=== PATIENT | female | born 1990 | race Caucasian/White ===

== ENCOUNTER 2020-07-09 08:53 | Outpatient (CLI) | payer BC, OTHER ==
[2020-07-09 16:37] LABS: SARS-CoV-2 MS2 Positive; SARS-CoV-2 N Gene Negative; SARS-CoV-2 S Gene Negative; SARS-CoV-2 by NAA Not Detected (NotDetected); SARS-CoV-2 orf1ab Negative
== END 2020-07-09 08:54 | disposition home or self-care (01) ==
LOC: LABBT 08:53
PROVIDERS: ATTEND Obstetrics & Gynecology
DX: Z20.828 Contact with and (suspected) exposure to other viral communicable diseases (principal)
CPT/HCPCS: 87635; U0003

== ENCOUNTER 2020-07-11 00:50 | Inpatient (IN) | payer BC, OTHER ==
[2020-07-11] MEDS ORDERED: Promethazine HCl 25 MG/ML VIAL IM PRN (01:38)
[2020-07-11] MEDS ORDERED: hydrALAZINE 20 MG/ML VIAL SLOW IVP PRN ×2 (01:38→17:36)
[2020-07-11] MEDS ORDERED: Lidocaine 1% (PF) 30 ML VIAL SC PRN (01:38)
[2020-07-11] MEDS ORDERED: Butorphanol Tartrate 1 MG/ML VIAL SLOW IVP PRN (01:38)
[2020-07-11] MEDS ORDERED: Ondansetron PF 4 MG/2 ML Vial IVP PRN ×2 (01:38→17:36)
[2020-07-11] MEDS ORDERED: Acetaminophen 500 MG TAB PO PRN (01:38)
[2020-07-11] MEDS ORDERED: Ibuprofen 800 MG TAB PO PRN (01:38)
[2020-07-11] MEDS ORDERED: HYDROcodone/Acetaminophen 5/325 mg Tablet PO PRN ×4 (01:38→17:36)
[2020-07-11] MEDS ORDERED: Lactated Ringer's 1,000 ML IV SCH (01:45)
[2020-07-11] MEDS ORDERED: NS w/ Oxytocin 10 units 500 ML IV SCH (01:45)
[2020-07-11 01:58] VITALS: BMI 25.1
[2020-07-11 03:19] LABS: Hemoglobin 12.3 g/dL (12.0-16.0); Mean Corpuscular HGB CONC 34.7 g/dL (32.0-36.0); Mean Corpuscular Hemoglobin 31.6 pg (27.0-31.0); Platelet Count 171 thou/uL (130-400); RBC Distribution Width 12.1 % (11.5-14.5); Red Blood Cell (RBC) Count 3.89 mill/uL (4.20-5.40); White Blood Cell (WBC) Count 10.5 thou/uL (4.8-10.8)
[2020-07-11 04:01] LABS: HBSAg Index 0.14 S/CO (0-0.99); Hep B Surf Ag Non-Reactive S/CO (NonReactive)
[2020-07-11 05:12] LABS: Syphilis Antibody Nonreactive (Nonreactive); Syphilis Antibody Index 0.03 S/CO (<1.00 Non-Reactive)
[2020-07-11] MEDS: Lactated Ringer's 1,000 ML IV SCH ×3 (07:40→11:27)
[2020-07-11] MEDS ORDERED: Fentanyl 4 mcg/Bup 0.1% Cadd 100 ML ONE (07:40)
--- NOTE | 2020-07-11 08:16 | PDOC.LDHP ---
Labor and Delivery H&P Chief complaint: loss of fluid HPI: Pt is 29yo @ term w PROM last night at 2230. Current gestational age (weeks): 39 Due date: 07/13/20 Dating criteria: last menstrual period, first trimester ultrasound Grav: 3 Para: 2 Current complications: none Abnormal US findings: No Current medications: pre-tani vitamins Previous surgical history: none (partial colectomy) Allergies/Adverse Reactions: Allergies Allergy/AdvReac Type Severity Reaction Status Date / Time No Known Drug Allergies Allergy Verified 02/23/19 12:49 Social history: none - Physical Exam Vital signs reviewed and normal: yes General: NAD Heart: RRR Lungs: CTAB Abdomen: gravid Extremeties: no edema FHT: category 1 - Vaginal Exam cm dilated: 3 Effacement: 75% Station: 0 - OB Labs Blood type: B RH: positive Antibody Screen: negative HIV: negative RPR: negative HEPSAg: negative 1 hour GCT: negative GBS: negative Rubella: immune - Assessment L&D Assessment: term rupture in membranes - Plan Plan: admit to L&D, labor augmentation if indicated, informed consent obtained, anesthesia consult for pain management
--- NOTE | 2020-07-11 12:59 | PDOC.LDPN ---
Labor & Delivery Progress Note - Subjective Subjective: comfortable - Objective Vital signs reviewed and normal: yes General: resting Dilation: 8 Effacement: 90% Station: 1+ FHT: category 1 [place] contractions every: 2-3 - Assessment (1) 39 weeks gestation of Code(s): Z3A.39 - 39 WEEKS GESTATION OF Current Visit: Yes Status: Acute (2) Normal Code(s): Z34.90 - ENCNTR FOR SUPRVSN OF NORMAL , UNSP, UNSP TRIMESTER Current Visit: No Status: Acute Plan: continue plan of care
--- NOTE | 2020-07-11 15:38 | PDOC.OPDEL ---
OB Operative/Delivery Note Delivery Dr/Surgeon: [place] Pre-Delivery Diagnosis: active labor (after IOL for PROM @ term) Procedure/Post Delivery Dx: operative vaginal delivery (VAVD for NRFHT) Weeks gestation: 39 - Findings A Sex: male - Additional Findings/Plan Placenta delivered: spontaneous Repaired Obstetrical Laceration: 2nd degree (repair of episiotomy) Estimated blood loss: 100ml Compilations/Other Findings: VAVD w vacuum placed over flexion point @ +3 for bradycardia. Delivery of infant after VAVD with the following contractions. Episiotomy necessary to expedite delivery. Repaired. Post delivery plan: routine recovery
[2020-07-11 15:58] LABS: Actual Bicarbonate (HCO3v) 22 mEq/L (22-28); Base Excess -4.6 mEq/L (-2.0 to +3.0)
[2020-07-11] MEDS: NS / Oxytocin 40 units/1000ml 1,000 ML IV PRN ×2 (16:36→17:15)
[2020-07-11] MEDS ORDERED: diphenhydrAMINE 25 MG CAP PO PRN (17:36)
[2020-07-11] MEDS ORDERED: Milk Of Magnesia 30 ML UDCUP PO PRN (17:36)
[2020-07-11] MEDS ORDERED: Preparation H Ointment 28 GM TUBE PR PRN (17:36)
[2020-07-11] MEDS ORDERED: NS / Oxytocin 40 units/1000ml 1,000 ML IV SCH (17:36)
[2020-07-11] MEDS ORDERED: Benzocaine-Menthol 82.5 ML CAN TOP PRN (17:36)
[2020-07-11] MEDS ORDERED: Adacel (T-DAP) 0.5 ML SYRINGE IM ONE (17:36)
[2020-07-11] MEDS ORDERED: Lanolin Ointment 7 GM TUBE TOP PRN (17:36)
[2020-07-11] MEDS ORDERED: Bisacodyl 10 MG SUPP PR PRN (17:36)
[2020-07-11] MEDS: Ferrous Sulfate 325 MG TAB PO SCH (18:05)
[2020-07-11] MEDS: Docusate Calcium (SURFAK) 240 MG CAP PO SCH (20:10)
[2020-07-11] MEDS: Ibuprofen 800 MG TAB PO SCH (20:10)
[2020-07-12] MEDS: Ibuprofen 800 MG TAB PO SCH ×2 (06:38→14:41)
--- NOTE | 2020-07-12 08:17 | PDOC.PP ---
Post Progress Note Post Day #: 1 Subjective: doing well, nursing well PO intake tolerated: yes Flatus: yes Ambulation: yes Vital Signs (12 hours) Temp Pulse Resp BP Pulse Ox 07/12/20 07:35 97.9 F 77 20 120/77 100 07/12/20 00:41 98.2 F 78 16 121/54 L Weight Weight 144 lb - Physical Examination General: NAD Respiratory: non-labored breathing Fundus firm & at: below umb Psychiatric: A&Ox3, normal affect Result Diagrams: 07/11/20 02:50 Additional Labs: Post Labs Hep Bs Antigen Non-Reactive S/CO (NonReactive) 07/11/20 02:50 Blood Type B POSITIVE 07/11/20 02:50 (1) 39 weeks gestation of Code(s): Z3A.39 - 39 WEEKS GESTATION OF Status: Acute (2) Normal Code(s): Z34.90 - ENCNTR FOR SUPRVSN OF NORMAL , UNSP, UNSP TRIMESTER Status: Acute - Assessment/Plan PPD1 sp VAVD doing well, plan for DC today.
[2020-07-12] MEDS ORDERED: Prenatal Vitamin 1 TAB PO SCH (09:00)
[2020-07-12] MEDS: Ferrous Sulfate 325 MG TAB PO SCH (09:01)
[2020-07-12] MEDS: Docusate Calcium (SURFAK) 240 MG CAP PO SCH (09:48)
[2020-07-12 12:03] VITALS: BP 105/58; TEMP 97.7
== END 2020-07-12 17:21 | disposition home or self-care (01) | DRG 807 ==
LOC: L&D/OP 00:50 → L&D 01:42 → 3SE 17:40
PROVIDERS: ADMIT Obstetrics & Gynecology; ATTEND Obstetrics & Gynecology
PROC: 10D07Z6 Extraction of Products of Conception, Vacuum, Via Natural or Artificial Opening (ICD-10-PCS; principal; 2020-07-11)
PROC: 0KQM0ZZ Repair Perineum Muscle, Open Approach (ICD-10-PCS; 2020-07-11)
PROC: 0W8NXZZ Division of Female Perineum, External Approach (ICD-10-PCS; 2020-07-11)
DX: O42.02 Full-term premature rupture of membranes, onset of labor within 24 hours of rupture (principal); Z37.0 Single live birth; O76 Abnormality in fetal heart rate and rhythm complicating labor and delivery; Z3A.39 39 weeks gestation of pregnancy; O70.1 Second degree perineal laceration during delivery
CPT/HCPCS: 82805; 85027; 86780; 86850; 86900; 86901; 87340; 87635; J2590; U0003